=== PATIENT | female | born 1950 | race Native Hawaiian/Other Pacific Islander ===

== ENCOUNTER 2016-11-19 09:08 | Outpatient (CLI) | payer OTHER | END 2016-11-19 19:32 | disposition home or self-care (01) | LOC: MAMMO 09:08 | DX: Z12.31 Encounter for screening mammogram for malignant neoplasm of breast (principal) | CPT/HCPCS: G0202-TC ==

== ENCOUNTER 2017-11-26 09:35 | Outpatient (CLI) | payer OTHER | END 2017-11-26 19:35 | disposition home or self-care (01) | LOC: MAMMO 09:35 | DX: Z12.31 Encounter for screening mammogram for malignant neoplasm of breast (principal) ==

== ENCOUNTER 2017-12-29 10:57 | Outpatient (CLI) | payer OTHER ==
[2017-12-29 11:25] LABS: PLATELET COUNT 362 K/uL (152-353)
== END 2017-12-29 19:52 | disposition home or self-care (01) ==
LOC: LABW 10:57
PROVIDERS: Obstetrics & Gynecology Gynecologic Oncology
DX: D39.11 Neoplasm of uncertain behavior of right ovary (principal); R97.1 Elevated cancer antigen 125 [CA 125]
CPT/HCPCS: 36415; 80048; 85027; 93005